=== PATIENT | female | born 1980 | race Caucasian/White ===

== ENCOUNTER 2020-06-29 16:17 | Emergency (ER) | payer OTHER ==
[~2020-06-29] VITALS: Ht 160 cm; Wt 58.7 kg
[2020-06-29] MEDS ORDERED: IV NORMAL SALINE 1,000ML 1,000 ML IV ONE (16:30)
[2020-06-29] MEDS ORDERED: ONDANSETRON PF 4 MG/2 ML VIAL. IVP ONE (16:30)
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
[2020-06-29 17:01] LABS: BASO % 0 % (0-3); EOS % 0 % (0-3); LYMPH # 0.6 x10^3/uL (1.0-4.8); LYMPH % 8 % (24-48); MEAN CORPUSCULAR HEMOGLOBIN 31 pg (25-35); MEAN CORPUSCULAR HGB CONC 34 g/dL (31-37); MEAN CORPUSCULAR VOLUME 90 fL (79-100); MONO # 0.6 x10^3/uL (0.0-1.1); MONO % 8 % (0-9); NEUT # 6.5 x10^3uL (1.8-7.7); NEUT % 84 % (31-73); PLATELET COUNT 223 x10^3/uL (140-400); RED BLOOD COUNT 4.24 x10^6/uL (3.50-5.40); RED CELL DISTRIBUTION WIDTH 12.7 % (11.5-14.5); WHITE BLOOD COUNT 7.8 x10^3/uL (4.0-11.0)
[2020-06-29 17:04] LABS: CALCIUM 8.7 mg/dL (8.5-10.1); CREATININE 0.9 mg/dL (0.6-1.0); GFR 69.3
[2020-06-29 17:06] LABS: PREG TEST PT QUAL NEGATIVE (NEG)
[2020-06-29 17:09] LABS: ALBUMIN 3.4 g/dL (3.4-5.0); ALBUMIN/GLOBULIN RATIO 0.8 (1.0-1.7); TOTAL BILIRUBIN 1.5 mg/dL (0.2-1.0); TOTAL PROTEIN 7.5 g/dL (6.4-8.2)
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
[2020-06-29] MEDS ORDERED: CONTRAST GIVEN. MC PRN (18:15)
[2020-06-29] MEDS ORDERED: IOHEXOL 300 MG/ML 75 ML VIAL. IV ONE (18:15)
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
[2020-06-29 20:53] LABS: BILIRUBIN,URINE NEG (NEG); CLARITY,URINE HAZY; COLOR,URINE YELLOW; GLUCOSE,URINE NEG (NEG); NITRITE,URINE NEG (NEG); UROBILINOGEN,URINE 0.2 mg/dL (0.2 mg/dL)
[2020-06-29 20:57] LABS: BACTERIA,URINE FEW /HPF (0-FEW)
[2020-06-29 20:58] LABS: SQUAMOUS EPITHELIAL CELL,UR MOD /LPF
[2020-06-29 21:30] VITALS: BP 120/57
[2020-06-29] MEDS ORDERED: HYDR-3165 PO (21:37)
== END 2020-06-29 21:50 | disposition home or self-care (01) ==
LOC: ER 16:17
DX: S62.102A Fracture of unspecified carpal bone, left wrist, initial encounter for closed fracture (principal); S92.901A Unspecified fracture of right foot, initial encounter for closed fracture; S16.1XXA Strain of muscle, fascia and tendon at neck level, initial encounter; S00.93XA Contusion of unspecified part of head, initial encounter; S40.811A Abrasion of right upper arm, initial encounter; S30.810A Abrasion of lower back and pelvis, initial encounter; R74.8 Abnormal levels of other serum enzymes; Z88.0 Allergy status to penicillin; Z88.1 Allergy status to other antibiotic agents; V89.2XXA Person injured in unspecified motor-vehicle accident, traffic, initial encounter; Y93.89 Activity, other specified; Y92.89 Other specified places as the place of occurrence of the external cause; Y99.8 Other external cause status
CPT/HCPCS: 29125; 36415; 70450; 71045; 71260; 72125; 73090; 73630; 74177; 80053; 81001; 84703; 85025; 96361; 96374; 96375; 99285; J2405; J3010; J7030; Q9967

== ENCOUNTER 2021-09-07 19:07 | Emergency (ER) | payer MEDICAID, OTHER ==
[~2021-09-07] VITALS: Ht 160 cm; Wt 58.7 kg
[~2021-09-07 19:07] MED LIST: HYDR-3165 PO
--- NOTE | 2021-09-07 19:42 | PHYS DOC ---
Past History Past Medical History: No Pertinent History Past Surgical History: Gastric Bypass, Hysterectomy, Tubal ligation Alcohol Use: None Drug Use: None Adult General HPI HPI Patient is a 41-year-old female with a past medical history significant for gastric sleeve who presents with a chief complaint of epigastric/umbilical pain, 6 out of 10, sharp in nature has been going on relatively consistently over the last 3 days with no obvious alleviating or aggravating factors. States she is still eating lightly but not as much as usual and most of it is liquid. Denies any recent trauma, travels, illnesses, chest pain, shortness of breath, nausea, vomiting, diarrhea, dysuria, hematuria. Denies any alcohol or drug use. Denies any known ill contacts. States she has had her Covid vaccination. Review of Systems Review of Systems Review of systems otherwise unremarkable except noted in HPI Allergies Allergies Allergies Coded Allergies Type Severity Reaction Last Updated Verified Penicillins Allergy Unknown 06/29/20 Yes levofloxacin Allergy Unknown 06/29/20 Yes Uncoded Allergies Type Severity Reaction Last Updated Verified wasp Allergy Severe 06/29/20 Physical Exam Physical Exam Constitutional: Well developed, well nourished, no acute distress, non-toxic appearance. [] HENT: Normocephalic, atraumatic, oropharynx moist, Eyes: conjunctiva normal, no discharge. [] Neck: Normal range of motion, no tenderness, supple, no stridor. [] Cardiovascular:Heart rate regular rhythm, no murmur [] Lungs & Thorax: Bilateral breath sounds clear to auscultation [] Abdomen: soft, tenderness around the epigastric and umbilical area with no rebound or guarding,, no masses, no pulsatile masses. [] Skin: Warm, dry, no erythema, no rash. [] Back: no CVA tenderness. [] Extremities: No tenderness, no cyanosis, no clubbing, ROM intact, no edema. [] Neurologic: Alert and oriented X 3, normal motor function, normal sensory function, no focal deficits noted. [] Psychologic: Affect normal, judgement normal, mood normal. [] EKG EKG [] Radiology/Procedures Radiology/Procedures []bdomen Findings: The visualized lung bases are clear. Liver measures 19 cm craniocaudad. The pancreas, spleen, and bilateral adrenal glands are normal. Cholecystectomy. Symmetric renal enhancement. There is no focal renal mass. There is no hydro nephrosis. Postsurgical changes of sleeve gastrectomy. The visualized loops of small bowel are normal. The visualized loops of large bowel are normal. There is no evidence of bowel obstruction. Appendix is normal. There is no free fluid. There is no mesenteric or retroperitoneal adenopathy. The abdominal aorta is normal in caliber. Pelvis Findings: Urinary bladder is decompressed. Hysterectomy. No pelvic free fluid. There is no pelvic or inguinal adenopathy. There is no acute bony abnormality. IMPRESSION: 1. No acute findings. 2. Sleeve gastrectomy. Cholecystectomy. Hysterectomy. Electronically signed by: Fabian Burger MD (09/07/2021 8:40 PM) [facility] Heart Score C/O Chest Pain: No Risk Factors: Risk Factors: DM, Current or recent (<one month) smoker, HTN, HLP, family history of CAD, obesity. Risk Scores: Risk Factors: DM, Current or recent (<one month) smoker, HTN, HLP, family history of CAD, obesity. Course & Med Decision Making Course & Med Decision Making Patient is a 41-year-old female who presents with epigastric/umbilical pain Vital signs not concerning. Physical exam noted above. Patient placed on monitor with IV access established. Given pain medicine. Started on IV fluid resuscitation. Vital signs not concerning. Laboratory analysis not concerning. On reassessment patient feeling better. Discussed all findings with patient. Advised to follow-up in the morning with her primary care physician. Gave strict return precautions to the ED. Patient grateful, verbalized understanding and agreed with plan of discharge. [] Dragon Disclaimer Dragon Disclaimer This electronic medical record was generated, in whole or in part, using a voice recognition dictation system. Departure Departure: Impression: Primary Impression: Abdominal pain Disposition: HOME / SELF CARE / HOMELESS Condition: STABLE Referrals: ROBB LI MD (PCP) Patient Instructions: Abdominal Pain Additional Instructions: Thank you for coming into the emergency department tonight and allowing us to take care of you. Please read all the attached information carefully go back over some of the things we discussed. As we discussed, all of your laboratory analysis and your CT scan of the belly were not concerning for any new findings. However this does not mean that there is not something going on that needs to be continually evaluated. Please call your primary care physician in the morning to update on your ED visit and set up a follow-up as soon as possible. Please come back to the ED with new or concerning symptoms as discussed. ТАТЬЯНА OWEN MD Sep 07, 2021 19:42
[2021-09-07] MEDS ORDERED: IV RINGERS SOLUTION,LACTATED 1,000 ML IV ONE (19:45)
[2021-09-07] MEDS ORDERED: IOHEXOL 300 MG/ML 75 ML VIAL. IV ONE (19:45)
[2021-09-07 20:12] LABS: BASO # 0.1 x10^3/uL (0.0-0.2); BASO % 1 % (0-3); EOS # 0.3 x10^3/uL (0.0-0.7); EOS % 7 % (0-3); HEMATOCRIT 37.1 % (36.0-47.0); HEMOGLOBIN 12.7 g/dL (12.0-15.5); LYMPH # 2.1 x10^3/uL (1.0-4.8); LYMPH % 41 % (24-48); MEAN CORPUSCULAR HEMOGLOBIN 31 pg (25-35); MEAN CORPUSCULAR HGB CONC 34 g/dL (31-37); MEAN CORPUSCULAR VOLUME 89 fL (79-100); MONO # 0.5 x10^3/uL (0.0-1.1); MONO % 9 % (0-9); NEUT # 2.2 x10^3uL (1.8-7.7); NEUT % 42 % (31-73); PLATELET COUNT 232 x10^3/uL (140-400); RED BLOOD COUNT 4.16 x10^6/uL (3.50-5.40); WHITE BLOOD COUNT 5.2 x10^3/uL (4.0-11.0)
[2021-09-07 20:22] LABS: CALCIUM 8.4 mg/dL (8.5-10.1); CREATININE 0.7 mg/dL (0.6-1.0); GFR 92.2; POTASSIUM 3.5 mmol/L (3.5-5.1)
[2021-09-07 20:26] LABS: BILIRUBIN,URINE NEG (NEG); CLARITY,URINE HAZY; COLOR,URINE YELLOW; GLUCOSE,URINE NEG (NEG)
[2021-09-07 20:27] LABS: BACTERIA,URINE FEW /HPF (0-FEW); NITRITE,URINE NEG (NEG); SQUAMOUS EPITHELIAL CELL,UR MANY /LPF
[2021-09-07 20:35] LABS: ALBUMIN 3.6 g/dL (3.4-5.0); ALBUMIN/GLOBULIN RATIO 0.9 (1.0-1.7); TOTAL BILIRUBIN 0.4 mg/dL (0.2-1.0); TOTAL PROTEIN 7.6 g/dL (6.4-8.2)
--- NOTE | 2021-09-07 20:43 | RAD ---
CT ABDOMEN+PELVIS W History: epigastric pain, H/O gastric sleeve Comparison: 06/29/2020 Technique: After administration of intravenous contrast, helical CT of the abdomen and pelvis was per formed from the lung bases through the ischial tuberosities. Coronal and sagittal reconstructions wer e obtained. 75 mL of Omnipaque 300 were used. One or more of the following dose reduction techniques were utilized: Automated exposure control (AEC), Adjustment of mA and/or kV according to patient size , Use of iterative reconstruction technique such as ASiR, CT scan done according to ALARA and image g ently/image wisely Abdomen Findings: The visualized lung bases are clear. Liver measures 19 cm craniocaudad. The pancreas, spleen, and bilateral adrenal glands are normal. Cho lecystectomy. Symmetric renal enhancement. There is no focal renal mass. There is no hydronephrosis. Postsurgical changes of sleeve gastrectomy. The visualized loops of small bowel are normal. The visua lized loops of large bowel are normal. There is no evidence of bowel obstruction. Appendix is normal. There is no free fluid. There is no mesenteric or retroperitoneal adenopathy. The abdominal aorta is normal in caliber. Pelvis Findings: Urinary bladder is decompressed. Hysterectomy. No pelvic free fluid. There is no pelvic or inguinal a denopathy. There is no acute bony abnormality. IMPRESSION: 1. No acute findings. 2. Sleeve gastrectomy. Cholecystectomy. Hysterectomy. Electronically signed by: Fabian Burger MD (09/07/2021 8:40 PM) [facility]
[2021-09-07 21:11] VITALS: BP 101/60
== END 2021-09-07 21:25 | disposition home or self-care (01) ==
LOC: ER 19:07
DX: R10.13 Epigastric pain (principal); R10.33 Periumbilical pain; Z90.710 Acquired absence of both cervix and uterus; Z98.51 Tubal ligation status; Z98.84 Bariatric surgery status; Z88.0 Allergy status to penicillin; Z88.1 Allergy status to other antibiotic agents
CPT/HCPCS: 36415; 74177; 80053; 81001; 83690; 85025; 87491; 87591; 96361; 96374; 99285; J3010; J7120; Q9967

== ENCOUNTER 2021-11-01 15:31 | Emergency (ER) | payer BC, MEDICAID ==
[~2021-11-01] VITALS: Ht 160 cm; Wt 58.7 kg
[2021-11-01 15:54] VITALS: BP 107/66
--- NOTE | 2021-11-01 15:56 | PHYS DOC ---
Past History Past Medical History: No Pertinent History Past Surgical History: Cholecystectomy, Gastric Bypass, Hysterectomy, Tubal ligation, Other Additional Past Surgical Histo: partial hysterectomy Alcohol Use: None Drug Use: None General Adult EDM: Chief Complaint: vaginal discharge HPI: HPI: 41-year-old female presents with vaginal itching. Patient recently took azithromycin and Flagyl for presumed infection. When she got her results back she was negative but then the patient started to have white vaginal discharge and intense pruritus. The patient is competent it is a yeast infection and wondering about treatment. Review of Systems: Review of Systems: Constitutional: Denies fever or chills Eyes: Denies change in visual acuity HENT: Denies nasal congestion or sore throat Respiratory: Denies cough or shortness of breath Cardiovascular: Denies chest pain or edema GI: Denies abdominal pain, nausea, vomiting, bloody stools or diarrhea : Vaginal discharge Musculoskeletal: Denies back pain or joint pain Integument: Denies rash Neurologic: Denies headache, focal weakness or sensory changes Endocrine: Denies polyuria or polydipsia Lymphatic: Denies swollen glands Psychiatric: Denies depression or anxiety Allergies: Allergies: Allergies Coded Allergies Type Severity Reaction Last Updated Verified Penicillins Allergy Unknown 06/29/20 Yes levofloxacin Allergy Unknown 06/29/20 Yes Uncoded Allergies Type Severity Reaction Last Updated Verified wasp Allergy Severe 06/29/20 Physical Exam: PE: Constitutional: Well developed, well nourished, no acute distress, non-toxic appearance. [] HENT: Normocephalic, atraumatic, bilateral external ears normal, oropharynx moist, no oral exudates, nose normal. [] Eyes: PERRLA, EOMI, conjunctiva normal, no discharge. [] Neck: Normal range of motion, no tenderness, supple, no stridor. [] Cardiovascular: Heart rate regular rhythm, no murmur [] Lungs & Thorax: Bilateral breath sounds clear to auscultation [] Abdomen: Bowel sounds normal, soft, no tenderness, no masses, no pulsatile masses. [] Skin: Warm, dry, no erythema, no rash. [] Back: No tenderness, no CVA tenderness. [] Extremities: No tenderness, no cyanosis, no clubbing, ROM intact, no edema. [] Neurologic: Alert and oriented X 3, normal motor function, normal sensory function, no focal deficits noted. [] Psychologic: Affect normal, judgement normal, mood normal. [] EKG: EKG: [] Radiology/Procedures: Radiology/Procedures: [] Heart Score: C/O Chest Pain: N/A Risk Factors: Risk Factors: DM, Current or recent (<one month) smoker, HTN, HLP, family history of CAD, obesity. Risk Scores: Score 0 - 3: 2.5% MACE over next 6 weeks - Discharge Home Score 4 - 6: 20.3% MACE over next 6 weeks - Admit for Clinical Observation Score 7 - 10: 72.7% MACE over next 6 weeks - Early Invasive Strategies Course & Med Decision Making: Course & Med Decision Making Pertinent Labs and Imaging studies reviewed. (See chart for details) The patient's urinalysis is negative for infection. Patient has deferred rectal exam because she is confident this is least infection. I will treat her with Diflucan in the ER and give her a prescription for home. She is stable for discharge at this time. [] Dragon Disclaimer: Dragon Disclaimer: This electronic medical record was generated, in whole or in part, using a voice recognition dictation system. Departure Departure: Impression: Primary Impression: Yeast infection of the vagina Disposition: HOME / SELF CARE / HOMELESS Condition: STABLE Referrals: ROBB LI MD (PCP) Patient Instructions: Vaginitis, [id number] Scripts Fluconazole (DIFLUCAN) 150 Mg Tablet 1 TAB PO ONCE for yeast infection, #1 TAB 1 Refill Prov: ESTEPHANIE BARKER DO 11/01/21 ESTEPHAINE BARKER DO Nov 01, 2021 15:56
[2021-11-01 17:01] LABS: BILIRUBIN,URINE NEG (NEG); CLARITY,URINE HAZY; COLOR,URINE YELLOW; GLUCOSE,URINE NEG (NEG); NITRITE,URINE NEG (NEG)
[2021-11-01 17:02] LABS: BACTERIA,URINE FEW /HPF (0-FEW); SQUAMOUS EPITHELIAL CELL,UR MANY /LPF
[2021-11-01] MEDS ORDERED: FLUC150T PO (17:19)
[2021-11-01] MEDS ORDERED: FLUCONAZOLE 100 MG TABLET. PO ONE (17:30)
== END 2021-11-01 17:43 | disposition home or self-care (01) ==
LOC: ER 15:31
DX: B37.3 Candidiasis of vulva and vagina (principal); Z90.49 Acquired absence of other specified parts of digestive tract; Z90.710 Acquired absence of both cervix and uterus; Z98.51 Tubal ligation status; Z98.84 Bariatric surgery status; Z88.0 Allergy status to penicillin; Z88.1 Allergy status to other antibiotic agents
CPT/HCPCS: 81001; 87086; 99283